=== PATIENT | male | born 1960 | race Caucasian/White ===

== ENCOUNTER 2023-09-06 08:15 | Emergency (ER) | payer MEDICARE ==
[~2023-09-06] VITALS: Ht 182.9 cm; Wt 88.5 kg
[2023-09-06] VITALS (11 sets, daily range): BP systolic 118–132; BP diastolic 60–82
[2023-09-06] MEDS ORDERED: SODIUM CHLORIDE 0.9% 1,000 ML IV ONE (08:30)
[2023-09-06] MEDS ORDERED: ASPIRIN 81 LOW81 MG (08:38)
[2023-09-06] MEDS ORDERED: ALDACTONE25 MG PO (08:39)
[2023-09-06] MEDS ORDERED: ATORVASTATIN CA40 MG PO (08:41)
[2023-09-06] MEDS ORDERED: CARVEDILOL3.125 MG PO (08:41)
[2023-09-06 08:45] LABS: BASO% 0.5 % (0-3); EOS% 3.4 % (0-8); HEMOGLOBIN 14.1 g/dl (14.0-18.0); IMMATURE GRANULOCYTES 0.5 % (0.0-5.0); LYMPH% 28.4 % (15-41); MEAN CELL VOLUME 86.4 fL CALC (80.0-100.0); MEAN CORPUSCULAR HGB 27.7 pG CALC (26.0-32.0); MONO% 8.5 % (2-13); NEUT# 5.84 thou/uL (1.82-7.42); NEUT% 58.7 % (42-76); RED BLOOD COUNT 5.09 mill/uL (4.70-6.10); RED CELL DISTRI WIDTH 12.9 % (11.5-15.5)
[2023-09-06 08:57] LABS: ALBUMIN 4.4 g/dL (3.2-5.0); ALKALINE PHOSPHATASE 100 u/l (38-126); ANION GAP 8 (6-22 (CALC)); BILIRUBIN, TOTAL 0.5 mg/dL (0.2-1.3); BUN 20 mg/dL (9-20); BUN/CREATININE RATIO 17 (12-20 (CALC)); CARBON DIOXIDE 28 mmol/l (22-30); CHLORIDE 108 mmol/l (95-108); CREATININE 1.2 mg/dL (0.7-1.3); ESTIMATED GFR 69 ML/MIN (>=90 (CALC)); POTASSIUM 4.9 mmol/l (3.5-5.1); SGOT/AST 32 u/l (17-59); SODIUM 138 mmol/l (137-146); TOTAL PROTEIN 7.6 g/dL (6.3-8.2)
== END 2023-09-06 10:05 | disposition home or self-care (01) ==
LOC: ED 08:15
PROVIDERS: Family Medicine
DX: R55 Syncope and collapse (principal); I10 Essential (primary) hypertension; E11.9 Type 2 diabetes mellitus without complications; I25.2 Old myocardial infarction; Z95.5 Presence of coronary angioplasty implant and graft; I25.118 Atherosclerotic heart disease of native coronary artery with other forms of angina pectoris
CPT/HCPCS: A9502; J2785